=== PATIENT | male | born 1960 | race Caucasian/White ===

== ENCOUNTER 2017-03-10 07:35 | Observation (INO) | payer MEDICARE, OTHER ==
[2017-03-10] MEDS ORDERED: NITROGLYCERIN OINT 1 INCH/GM PACKET TOPICAL STA (07:46)
[2017-03-10] MEDS ORDERED: HEPARIN SODIUM,PORCINE 5,000 UNIT/ML 1 ML VIAL IV STA (07:46)
[2017-03-10] MEDS ORDERED: SODIUM CHLORIDE 0.9% 1,000 ML IV STA (07:46)
--- NOTE | 2017-03-10 07:50 | ED ---
Chest Pain HPI - General Chief Complaint: Chest Pain Stated Complaint: chest pain Time Seen by Provider: 03/10/17 07:35 Source: patient, EMS, RN notes reviewed, old records reviewed Mode of arrival: EMS Limitations: no limitations - History of Present Illness Initial Comments: This is a 57-year-old male with a benign history other than cervical disc disease with cervical radiculopathy postemetic stress disorder and shoulder surgery as well as hypertension and who is a smoker who states he woke up from sleep around 1 AM this morning with severe pain sharp in nature across his chest. Nonradiating. Shortness of breath with it. It lasted about 2 hours until he went to the hospital and was given nitroglycerin and then went away. It was 9/10 at its worst currently is 0/10. He was transferred from [facility] to this facility for further evaluation. Patient has no personal history of heart disease with a strong family history of heart disease. He does relate also that he's been having shortness of breath recently with exertion. He denies any fevers chills sweats cough or phlegm production no other symptoms. He was pain-free on the right from the sending facility. MD Complaint: chest pain - Related Data Home Medications Medication Instructions Recorded Confirmed Ibuprofen [Motrin] 800 mg PO Q8HR PRN 01/11/14 03/10/17 Lisinopril 40 mg PO DAILY 03/10/17 03/10/17 Sertraline [Zoloft] 100 mg PO DAILY 03/10/17 03/10/17 Allergies Allergy/AdvReac Type Severity Reaction Status Date / Time No Known Allergies Allergy Verified 03/10/17 08:13 Review of Systems ROS Statement: Those systems with pertinent positive or pertinent negative responses have been documented in the HPI. ROS Other: All systems not noted in ROS Statement are negative. EKG Findings - EKG Results: EKG: interpreted by ERMD, sinus rhythm (Normal sinus rhythm with a rate 75 MD interval 154 QRS 86 QT since QTC of 352/393 is a normal-appearing EKG unchanged today presented by EMS from the sending facility.) Past Medical History Past Medical History: Hypertension History of Any Multi-Drug Resistant Organisms: None Reported Past Surgical History: Orthopedic Surgery Additional Past Surgical History / Comment(s): shoulder surg Past Anesthesia/Blood Transfusion Reactions: No Reported Reaction Past Psychological History: PTSD Smoking Status: Current every day smoker Past Alcohol Use History: None Reported Past Drug Use History: None Reported General Exam - General Exam Comments Initial Comments: This is a well-developed well-nourished awake alert oriented 3 male Limitations: no limitations General appearance: alert, in no apparent distress Head exam: Present: atraumatic, normocephalic, normal inspection Eye exam: Present: normal appearance, PERRL, EOMI. Absent: scleral icterus, conjunctival injection, periorbital swelling ENT exam: Present: normal exam, mucous membranes moist Neck exam: Present: normal inspection. Absent: tenderness, meningismus, lymphadenopathy Respiratory exam: Present: normal lung sounds bilaterally. Absent: respiratory distress, wheezes, rales, rhonchi, stridor Cardiovascular Exam: Present: regular rate, normal rhythm, normal heart sounds. Absent: systolic murmur, diastolic murmur, rubs, gallop, clicks GI/Abdominal exam: Present: soft, normal bowel sounds. Absent: distended, tenderness, guarding, rebound, rigid Extremities exam: Present: normal inspection, full ROM, normal capillary refill. Absent: tenderness, pedal edema, joint swelling, calf tenderness Back exam: Present: normal inspection Neurological exam: Present: alert, oriented X3, CN II-XII intact Psychiatric exam: Present: normal affect, normal mood Skin exam: Present: warm, dry, intact, normal color. Absent: rash Course Vital Signs 03/10/17 07:37 Temperature 97.3 F L Pulse Rate 78 Respiratory 16 Rate Blood Pressure 204/86 O2 Sat by Pulse 95 Oximetry Chest Pain MDM - MDM Review the imaging shows no acute findings there was submitted from the other hospital. Patient will be admitted for evaluation of suspected angina. Remained pain-free. Disposition Clinical Impression: Unstable angina pectoris Disposition: ADMITTED IP TO THIS [facility] Condition: Stable Referrals: Nonstaff,Physician [Primary Care Provider] - 1-2 days
[2017-03-10] MEDS: HEPARIN SODIUM,PORCINE/D5W PMX 25,000 UNIT in DEXTROSE/WATER 1 500ML.BAG IV SCH (08:11)
[2017-03-10] MEDS ORDERED: NITROGLYCERIN SL TABS 0.4 MG TAB SUBLINGUAL PRN (08:21)
[2017-03-10] MEDS ORDERED: IBUPROFEN 800 MG TAB PO PRN (08:23)
[2017-03-10 08:25] LABS: Basophils # (A) 0.1 k/uL (0-0.2); Basophils % (A) 1 %; CH 31.3; CHCM 33.5; Eosinophils # (A) 0.2 k/uL (0-0.7); Eosinophils % (A) 2 %; HCT 45.3 % (39.0-53.0); HDW 2.38; HGB 14.9 gm/dL (13.0-17.5); Luc # (Auto) 0.14; Luc % (Auto) 2; Lymphocytes # (A) 1.5 k/uL (1.0-4.8); Lymphocytes % (A) 24 %; MCH 30.9 pg (25.0-35.0); MCHC 32.9 g/dL (31.0-37.0); MCV 93.7 fL (80.0-100.0); Mean Platelet Volume 7.1; Monocytes # (A) 0.3 k/uL (0-1.0); Monocytes % (A) 6 %; Neutrophils % (A) 64 %; RBC 4.83 m/uL (4.30-5.90); RDW 13.8 % (11.5-15.5); WBC 6.1 k/uL (3.8-10.6); WBC (Perox) 5.84
[2017-03-10 08:34] LABS: ALT 63 U/L (21-72); AST 31 U/L (17-59); Alkaline Phosphatase 75 U/L (38-126); Amylase 62 U/L (30-110); Anion Gap 7 mmol/L; Blood Urea Nitrogen 12 mg/dL (9-20); Calcium 9.2 mg/dL (8.4-10.2); Carbon Dioxide 26 mmol/L (22-30); Chloride 106 mmol/L (98-107); Glucose 101 mg/dL (74-99); Magnesium 1.9 mg/dL (1.6-2.3); Non-African American GFR(MDRD) >60 (>60 ml/min/1.73 sqM); Potassium 5.1 mmol/L (3.5-5.1); Sodium 139 mmol/L (137-145); Total Bilirubin 0.4 mg/dL (0.2-1.3); Total Protein 7.2 g/dL (6.3-8.2)
[2017-03-10 08:38] LABS: INR 0.9 (<1.2); Partial Thromboplastin Time 25.2 sec (22.0-30.0); Prothrombin Time 9.6 sec (9.0-12.0)
[2017-03-10 08:45] LABS: Creatine Kinase 82 U/L (55-170)
[2017-03-10 08:57] LABS: Creatine Kinase MB 1.1 ng/mL (0.0-2.4); Troponin I <0.012 ng/mL (0.000-0.034)
[2017-03-10 09:56] VITALS: BMI 28.6
[2017-03-10] MEDS: SODIUM CHLORIDE 0.9% 1,000 ML IV SCH (10:04)
[2017-03-10] MEDS: LISINOPRIL 20 MG TAB PO SCH (10:19)
[2017-03-10] MEDS: SERTRALINE 100 MG TAB PO SCH (10:19)
--- NOTE | 2017-03-10 12:53 | CONS ---
CONSULTATION DATE OF SERVICE: 03/10/2017 HISTORY: Kulwant Ohara is an ex-[employer] man who lives in the [place] area. He has hypertension and seeks his healthcare at the [facility] usually. He was transferred from the emergency room at [place] to come to this ER because of an episode of chest pain. Apparently for the last few days he has been experiencing what he describes as a pressure in the chest. It seemed to have gotten progressively worse and he woke up his and went to the emergency room. He does have cervical disk disease with arthritis. He initially thought the left arm pain may be the same, but then he had chest pressure. Initially it was a sharp pain, took his breath away, he had associated shortness of breath and then the pain became more of a heaviness in the chest and he required a sublingual nitroglycerin before it could be resolved. He is resting comfortably at this time. He is pain free. He denies any symptoms at the time of my evaluation. PAST MEDICAL HISTORY: 1. Hypertension. 2. History of smoking and possible COPD. 3. Cervical spine degenerative disk disease. ALLERGIES: None. MEDICATIONS: 1. Ibuprofen. 2. Lisinopril. 3. Zoloft. 4. REVIEW OF SYSTEMS: Remarkable for exertional shortness of breath. Occasional chest tightness. No hematemesis, melena, or genitourinary symptoms, fever with chills or cough with expectoration. PHYSICAL EXAMINATION: Blood pressure is 144/70, pulse rate is about 70 per minute and regular. HEENT: Unremarkable. Fundus was not examined by me. NECK: Supple. There is no JVD. I do not hear a carotid bruit. HEART: Exam reveals S1, S2 heard normally. There is a no significant rub, murmur or gallop detected. LUNGS: Reveal decent air entry. ABDOMEN: Soft, nontender. EXTREMITIES: Lower extremities reveal palpable pulses. No edema. NEUROLOGIC: Central nervous system is grossly within normal limits EKG revealed a sinus mechanism without any acute changes. LABORATORY DATA: Revealed that his initial troponin is normal. His D-dimer is also within normal limits. IMPRESSION: 1. Chest pain syndrome. The quality of this pain is variable. Cannot exclude angina. 2. Hypertension, under fair control. 3. History of smoking and chronic obstructive pulmonary disease. 4. Degenerative disease of the cervical spine. RECOMMENDATIONS: I am recommending that we continue IV heparin and perform additional troponins. If he has troponins are normal and he has no further chest pain, we will perform a stress test tomorrow. However, if he has any recurrence of chest pain, we will perform coronary angiography. I discussed my thoughts in detail with the patient. Rationale for the coronary angiography, risks, benefits, options were also explained. We will make a decision based on clinical course in the next several hours. Thank you very much for the consult. SLADE / JORGE: [id number] /
[2017-03-10] MEDS ORDERED: HEPARIN SODIUM,PORCINE 5,000 UNIT/ML 1 ML VIAL IV PRN (14:34)
[2017-03-10 14:38] LABS: Creatine Kinase 88 U/L (55-170)
[2017-03-10 14:50] LABS: Troponin I <0.012 ng/mL (0.000-0.034)
[2017-03-10] MEDS ORDERED: ACETAMINOPHEN TAB 325 MG TAB PO PRN (15:09)
[2017-03-10] MEDS ORDERED: IPRATROPIUM-ALBUTEROL 3 ML NEB INHALATION PRN (15:10)
--- NOTE | 2017-03-10 15:14 | P.HPIM ---
History of Present Illness H&P Date: 03/10/17 Chief Complaint: Chest pain Patient is a 57-year-old male with a known history of hypertension, cervical radiculopathy and history of shoulder surgery has been undergoing physical therapy for the past 10 weeks came to the hospital with complaints of chest pain. Patient says that she developed sudden midsternal chest pain and woke up at 1 AM in the morning with sharp pain. Patient felt like bandlike chest discomfort mainly around the epigastric region. 9 /10 in severity. Patient usually have numbness of both arms due to his cervical retinopathy. Pain lasted for about 2 hours and patient came to ER where he was given nitroglycerin sublingual which seemed to help as per the patient. Patient was initially seen at [facility] and transferred to [facility] for further evaluation. Patient denied any previous history of coronary artery disease. Otherwise patient does state smoke everyday. He does take Motrin 800 mg 3 times almost daily for a long time. Currently patient denied any chest pain. Patient denied any cough is from production. No recent illnesses. No recent travel or sick contacts. No fever no chills at home. Patient has family history of coronary artery disease. EKG showed normal sinus rhythm Troponin 1 negative D-dimer is not elevated Chest x-ray will be done. Review of Systems Constitutional: Patient denies any fever or chills . No generalized weakness or weight loss. Abdomen: Patient denied nausea vomiting and diarrhea and abdominal pain. Cardiovascular: Patient denies any chest pain or short of breath no palpitations. Respiratory: patient denied any cough is from production. No shortness of breath Neurologic: Patient denied any numbness or tingling headache. Musculoskeletal: Patient denies any complaints of joint swelling or deformity. Skin: Negative Psychiatric: Negative Endocrine: No heat or cold intolerance. No recent weight gain. Genitourinary: No dysuria or hematuria. All other 14 point ROS negative except the above Past Medical History Past Medical History: Hypertension History of Any Multi-Drug Resistant Organisms: None Reported Past Surgical History: Orthopedic Surgery Additional Past Surgical History / Comment(s): Right shoulder surg Past Anesthesia/Blood Transfusion Reactions: No Reported Reaction Past Psychological History: PTSD Smoking Status: Current every day smoker Past Alcohol Use History: None Reported Additional Past Alcohol Use History / Comment(s): pt states he smokes right around a pack per day since 1977. Past Drug Use History: None Reported - Past Family History Father Additional Family Medical History / Comment(s): cardiac arrest Mother Additional Family Medical History / Comment(s): cardiac arrest Brother(s) Additional Family Medical History / Comment(s): cardiac arrest Medications and Allergies Home Medications Medication Instructions Recorded Confirmed Type Ibuprofen [Motrin] 800 mg PO Q8HR PRN 01/11/14 03/10/17 History Lisinopril 40 mg PO DAILY 03/10/17 03/10/17 History Sertraline [Zoloft] 100 mg PO DAILY 03/10/17 03/10/17 History Allergies Allergy/AdvReac Type Severity Reaction Status Date / Time No Known Allergies Allergy Verified 03/10/17 08:13 Physical Exam Vitals: Vital Signs Temp Pulse Pulse Resp BP BP Pulse Ox 03/10/17 12:00 97.6 F 74 16 143/65 93 L 03/10/17 10:05 77 18 03/10/17 09:20 97.5 F L 77 18 152/68 95 03/10/17 09:19 97.3 F L 83 16 153/74 95 03/10/17 09:14 83 16 153/74 95 03/10/17 08:51 83 16 153/74 95 03/10/17 08:22 90 16 146/91 03/10/17 07:37 97.3 F L 78 16 204/86 95 Intake and Output 03/09/17 03/10/17 03/10/17 22:59 06:59 14:59 Other: Voiding Method Toilet Weight 112.6 kg Patient Weight 03/11/17 06:59 Weight 112.6 kg PHYSICAL EXAMINATION: Patient is lying in the bed comfortably, no acute distress, awake alert and oriented.. HEENT: Normocephalic. Neck is supple. Pupils reactive. Nostrils clear. Oral cavity is moist. Ears reveal no drainage. Neck reveals no JVD, carotid bruits, or thyromegaly. CHEST EXAMINATION: Trachea is central. Symmetrical expansion. Bilateral air entry diminished. No wheezing noted. CARDIAC: Normal S1, S2 with no gallops. No murmurs ABDOMEN: Soft. Bowel sounds normal. No organomegaly. No abdominal bruits. Extremities: reveal no edema. No clubbing or cyanosis Neurologically awake, alert, oriented x3 with well-coordinated movements. No focal deficits noted Skin: No rash or skin lesions. Psychiatric: Cooperative. Nonsuicidal Musculoskeletal: No joint swelling or deformity. Normal range of motion. Results CBC & Chem 7: 03/10/17 08:01 03/10/17 08:01 Labs: Abnormal Lab Results - Last 24 Hours (Table) 03/10/17 Range/Units 08:01 Glucose 101 H (74-99) mg/dL Thrombosis Risk Factor Assmnt - Choose All That Apply Any of the Below Risk Factors Present?: Yes Each Factor Represents 1 point: Age 41-60 years, Obesity (BMI >25) Other Risk Factors: No Other congenital or acquired thrombophilia - If yes, enter type in comment: No Thrombosis Risk Factor Assessment Total Risk Factor Score: 2 Thrombosis Risk Factor Assessment Level: Low Risk Assessment and Plan Assessment: #1 atypical chest pain. Will rule out ACS. Could be related to gastritis versus suspected COPD #2 hypertension controlled #3 cervical radiculopathy. With bilateral numbness in the hands. Currently undergoing PT OT #4 chronic Motrin use 3 times daily #5 nicotine addiction #6 suspected COPD Plan: Patient will be continued on heparin drip and follow-up serial EKG and troponins. Unlikely PE with negative d-dimer. Will hold Motrin and start him on Maalox for gastric distress and follow up closely. DuoNeb's when necessary. Cardiology is following and further recommendations based on the clinical course. Possible stress test tomorrow. Smoking cessation has been counseled extensively. Time with Patient: Greater than 30
[2017-03-10] MEDS: NITROGLYCERIN OINT 1 INCH/GM PACKET TOPICAL SCH ×2 (15:22→18:40)
--- NOTE | 2017-03-10 16:38 | XR ---
EXAMINATION TYPE: XR chest 2V DATE OF EXAM: 03/10/2017 COMPARISON: 01/11/2014 INDICATION: Short of breath TECHNIQUE: Frontal and lateral views of the chest are obtained. FINDINGS: The heart size is normal. The pulmonary vasculature is normal. The lungs are clear. IMPRESSION: 1. No acute pulmonary process.
[2017-03-10] MEDS ORDERED: HYDROcodone/APAP 5-325MG 1 EACH TAB PO PRN (17:33)
[2017-03-10] MEDS: MAG HYDROX/AL HYDROX/SIMETH 30 ML CUP PO SCH (17:43)
[2017-03-10 19:51] VITALS: RESP 18
[2017-03-10] MEDS: METOPROLOL TARTRATE 25 MG TAB PO SCH (20:57)
[2017-03-10 21:09] LABS: Creatine Kinase 106 U/L (55-170)
[2017-03-10 21:22] LABS: Troponin I <0.012 ng/mL (0.000-0.034)
[2017-03-11] MEDS: NITROGLYCERIN OINT 1 INCH/GM PACKET TOPICAL SCH ×3 (04:04→13:34)
[2017-03-11] MEDS: MAG HYDROX/AL HYDROX/SIMETH 30 ML CUP PO SCH ×3 (04:05→15:47)
[2017-03-11] MEDS ORDERED: AMINOPHYLLINE 500 MG/20 ML VIAL IV PRN (05:42)
[2017-03-11] MEDS ORDERED: REGADENOSON 0.4 MG/5 ML SYRINGE IV ONE (05:42)
[2017-03-11 05:45] LABS: Cholesterol 178 mg/dL (<200); HDL Cholesterol 35 mg/dL (40-60)
[2017-03-11] MEDS: HEPARIN SODIUM,PORCINE/D5W PMX 25,000 UNIT in DEXTROSE/WATER 1 500ML.BAG IV SCH (06:51)
[2017-03-11] MEDS: SODIUM CHLORIDE 0.9% 1,000 ML IV SCH (06:52)
[2017-03-11] MEDS ORDERED: ASPIRIN 325 MG TAB PO SCH (09:00)
[2017-03-11] MEDS: SERTRALINE 100 MG TAB PO SCH (10:45)
[2017-03-11] MEDS: LISINOPRIL 20 MG TAB PO SCH (10:45)
[2017-03-11] MEDS: METOPROLOL TARTRATE 25 MG TAB PO SCH (10:45)
--- NOTE | 2017-03-11 10:57 | NM ---
EXAMINATION TYPE: NM stress lexiscan cardiolite DATE OF EXAM: 03/11/2017 COMPARISON: NONE HISTORY: Chest pain TECHNIQUE: After the intravenous administration of 11 mCi Tc 99m Sestamibi - Cardiolite resting SPEC T images acquired 55 minutes post injection. The patient received 0.4mg Lexiscan, 28.9 mCi Tc 99m Sestamibi - Stress images obtained [address] injection FINDINGS: Review of stress and rest SPECT images demonstrates no distinct perfusion abnormality. Gated analysi s shows normal wall motion with an estimated left ventricular ejection fraction of 58 %. IMPRESSION: No scintigraphic evidence for reversible ischemia.
--- NOTE | 2017-03-11 11:27 | ECHOF ---
Referral Reason:cp MEASUREMENTS -------- HEIGHT: 185.4 cm WEIGHT: 112.9 kg BP: 139/68 RVIDd: 2.8 cm (< 3.3) IVSd: 1.1 cm (0.6 - 1.1) LVIDd: 5.3 cm (3.9 - 5.3) LVPWd: 1.2 cm (0.6 - 1.1) IVSs: 1.5 cm LVIDs: 3.7 cm LVPWs: 1.4 cm LA Diam: 3.8 cm (2.7 - 3.8) LAESV Index (A-L): 22.94 ml/m Ao Diam: 3.5 cm (2.0 - 3.7) AV Cusp: 2.2 cm (1.5 - 2.6) MV EXCURSION: 17.245 mm (> 18.000) MV EF SLOPE: 106 mm/s (70 - 150) EPSS: 0.5 cm MV E Robin: 0.68 m/s MV DecT: 291 ms MV A Robin: 0.72 m/s MV E/A Ratio: 0.94 AV maxP.36 mmHg AV maxP.36 mmHg AV meanP.64 mmHg AR PHT: 787 ms FINDINGS -------- Sinus rhythm. This was a technically good study. The left ventricular size is normal. There is borderline concentric left ventricular hypertrophy. Overall left ventricular systolic function is normal with, an EF between 55 - 60 %. The right ventricle is normal in size. Normal LA size by volume 22+/-6 ml/m2. The right atrium is normal in size. Aortic valve is trileaflet and is mildly thickened. There is mild aortic regurgitation. Mild mitral annular calcification present. The tricuspid valve appears structurally normal. Trace/mild (physiologic) pulmonic regurgitation. The aortic root size is normal. Normal inferior vena cava with normal inspiratory collapse consistent with estimated right atrial pre ssure of 5 mmHg. There is no pericardial effusion. CONCLUSIONS -------- 1. Sinus rhythm. 2. This was a technically good study. 3. The left ventricular size is normal. 4. There is borderline concentric left ventricular hypertrophy. 5. Overall left ventricular systolic function is normal with, an EF between 55 - 60 %. 6. The right ventricle is normal in size. 7. Normal LA size by volume 22+/-6 ml/m2. 8. The right atrium is normal in size. 9. Aortic valve is trileaflet and is mildly thickened. 10. There is mild aortic regurgitation. 11. Mild mitral annular calcification present. 12. The tricuspid valve appears structurally normal. 13. Trace/mild (physiologic) pulmonic regurgitation. 14. The aortic root size is normal. 15. Normal inferior vena cava with normal inspiratory collapse consistent with estimated right atrial pressure of 5 mmHg. 16. There is no pericardial effusion. WET WHEELER: Ele Woodall RDCS
[2017-03-11 11:28] VITALS: TEMP 97.6
--- NOTE | 2017-03-11 12:04 | EST ---
EXERCISE STRESS DATE OF SERVICE: 03/11/2017 AGE: 57 SEX: Male HT: 73" WT: 248 pounds PROTOCOL: Lexiscan Cardiolite STAGE: DURATION OF EXERCISE: HEART RATE REST: 62 BLOOD PRESSURE REST: 109/66 MAXIMUM HEART RATE ACHIEVED: 80 MAXIMUM BLOOD PRESSURE: 125/71 85% MPHR: 139 100% MPHR: 163 METS: INDICATIONS: Chest pain. CLINICAL INFORMATION: Patient was given Lexiscan injection over a period of 15 seconds. The peak heart rate of 80 was achieved. Maximum blood pressure of 125/71 mmHg was noted. The patient did not complain of any chest pain during the test. The baseline EKG shows normal sinus rhythm with normal DE interval and QRS duration and normal ST-T waves. No ST-segment depression suggestive of ischemia was noted. The results of the nuclear study will follow. SLADE / JORGE: [id number] /
[2017-03-11 15:57] VITALS: BP 133/68; PULSE 69
--- NOTE | 2017-03-11 23:40 | P.DS ---
Providers Date of admission: 03/10/17 08:21 Expected date of discharge: 03/11/17 Attending physician: Rene Hadley Consults: 03/10/17 08:21 Consult Physician Urgent Consulting Provider: Frank Melendez Consult Reason/Comments: Unstable angina Do you want consulting provider notified?: Yes Primary care physician: Physician Nonstaff Hospital Course: Discharge diagnosis #1 atypical chest pain. ruled out ACS. Could be related to gastritis versus suspected COPD #2 hypertension controlled #3 cervical radiculopathy. With bilateral numbness in the hands. Currently undergoing PT OT #4 chronic ibuprofen use 3 times daily #5 nicotine addiction #6 suspected COPD Hospital course Patient is a 57-year-old male with a known history of hypertension, cervical radiculopathy and history of shoulder surgery has been undergoing physical therapy for the past 10 weeks came to the hospital with complaints of chest pain. Patient says that she developed sudden midsternal chest pain and woke up at 1 AM in the morning with sharp pain. Patient felt like bandlike chest discomfort mainly around the epigastric region. 9 /10 in severity. Patient usually have numbness of both arms due to his cervical retinopathy. Pain lasted for about 2 hours and patient came to ER where he was given nitroglycerin sublingual which seemed to help as per the patient. Patient was initially seen at [facility] and transferred to [facility] for further evaluation. Patient denied any previous history of coronary artery disease. Otherwise patient does state smoke everyday. He does take Motrin 800 mg 3 times almost daily for a long time. Currently patient denied any chest pain. Patient denied any cough is from production. No recent illnesses. No recent travel or sick contacts. No fever no chills at home. Patient has family history of coronary artery disease. EKG showed normal sinus rhythm Troponin 1 negative D-dimer is not elevated Chest x-ray showed no acute cardiopulmonary process.. 04/10/2017 Patient denied any chest pain today. Patient underwent Lexiscan stress test showed no inducible ischemia. Patient is cleared for discharge. Smoking cessation was counseled. And patient advised to decrease Motrin use and take it with food to decrease gastric symptoms. Patient was continued on heparin drip and follow-up serial EKG and troponins. Troponin 3 negative Unlikely PE with negative d-dimer. Did hold Motrin and started him on Maalox for gastric distress and follow up closely. DuoNeb's when necessary. Cardiology recommends stress test which showed no inducible ischemia. Otherwise patient is to [place] discharged home and follow with primary care physician in 3-5 days. Discharge physical examination was done. Patient Condition at Discharge: Stable Plan - Discharge Summary Discharge Rx Participant: Yes New Discharge Prescriptions: Continue Sertraline [Zoloft] 100 mg PO DAILY Lisinopril 40 mg PO DAILY Discontinued Ibuprofen [Motrin] 800 mg PO Q8HR PRN PRN Reason: Pain Discharge Medication List Lisinopril 40 mg PO DAILY 03/10/17 [History] Sertraline [Zoloft] 100 mg PO DAILY 03/10/17 [History] Follow up Appointment(s)/Referral(s): Nonstaff,Physician [Primary Care Provider] - 1-2 days Jeanne Madison MD [STAFF PHYSICIAN] - As Needed Patient Instructions/Handouts: Angina (GEN) Discharge Disposition: HOME SELF-CARE
== END 2017-03-11 16:07 | disposition home or self-care (01) ==
LOC: SUPCPDRO 07:35 → EC 07:35 → 3OBS 08:21
PROVIDERS: ADMIT Hospitalist; ATTEND Hospitalist
DX: R07.89 Other chest pain (principal); R06.02 Shortness of breath; I10 Essential (primary) hypertension; M50.10 Cervical disc disorder with radiculopathy, unspecified cervical region; F43.10 Post-traumatic stress disorder, unspecified; E66.9 Obesity, unspecified; Z68.25 Body mass index [BMI] 25.0-25.9, adult; Z82.49 Family history of ischemic heart disease and other diseases of the circulatory system; F17.200 Nicotine dependence, unspecified, uncomplicated; Z71.6 Tobacco abuse counseling; Z79.899 Other long term (current) drug therapy; Z79.1 Long term (current) use of non-steroidal anti-inflammatories (NSAID)
CPT/HCPCS: 96365 ×2; 96376 ×3; 99285 ×2; 96366; 36415; 94760; 93005; 93017; 93306; 85379; 80061; 80053; 82150; 82550; 82553; 83690; 83735; 84484; 85025; 85610; 85730; 71020; 78452; G0378 ×2; A9500; J1644 ×2; J2785